=== PATIENT | male | born 1980 | race American Indian/Alaskan Native ===

== ENCOUNTER 2017-05-15 18:30 | Emergency (ER) | payer MEDICARE ==
[2017-05-15 19:32] LABS: Hematocrit 41.7 % (35.5-45.6); Hemoglobin 14.2 gm/dl (11.8-15.2); Mean Corpuscular HGB Conc 34 % (32-34); Mean Corpuscular Hemoglobin 29 pg (28-32); Mean Corpuscular Volume 84 fl (84-94); Platelet Count 253 K/mm3 (140-440); Red Blood Count 4.98 M/mm3 (3.65-5.03); Red Cell Distribution Width 13.1 % (13.2-15.2); White Blood Count 8.1 K/mm3 (4.5-11.0)
[2017-05-15 20:18] LABS: BUN/Creatinine Ratio 11.33; Calcium 9.4 mg/dL (8.4-10.2); Chloride 95.4 mmol/L (98-107); Potassium 4.4 mmol/L (3.6-5.0)
[2017-05-16] MEDS ORDERED: BOOSTRIX IM ONE (01:11)
[2017-05-16] MEDS ORDERED: MOTRIN PO ONE (01:11)
--- NOTE | 2017-05-16 01:13 | Emergency Department Report ---
- General Chief complaint: Skin/Abscess/Foreign Body Stated complaint: POSS INSECT BITE Time Seen by Provider: 05/16/17 01:03 Source: patient Mode of arrival: Ambulatory Limitations: No Limitations - History of Present Illness Initial comments: This is a 29-year-old male nontoxic, well nourished in appearance, no acute signs of distress the present ED complaining of open wound to right breast region. Patient stated he believes he was bitten by something about on the origin. Patient denies any fever, chills, chest pain, shortness of breath, stiff neck, headache, nausea, vomiting, numbness or tingling. Patient stated the wound has been open and draining for the past week. Patient denies following up with a primary care doctor regarding this matter. Denies any drug allergies. Past medical history of diabetes, hypertension, and CVA. MD complaint: other (open wound) -: Gradual, week(s) (1) Tetanus Up to Date: unsure Location: chest (right) Severity: mild Severity scale (0 -10): 9 Quality: aching Consistency: constant Improves with: none Worsens with: none Context: none Associated symptoms: denies other symptoms Treatments Prior to Arrival: none - Related Data Previous Rx's Medication Instructions Recorded Last Taken Type Clindamycin [Clindamycin CAP] 450 mg PO Q8HR 7 Days 05/16/17 Unknown Rx Sulfamethoxazole/Trimethoprim 1 each PO BID 7 Days 05/16/17 Unknown Rx [Bactrim DS TAB] Allergies Allergy/AdvReac Type Severity Reaction Status Date / Time No Known Allergies Allergy Unverified 05/15/17 18:46 Abscess Boil HPI - HPI Chief Complaint: Skin/Abscess/Foreign Body Stated Complaint: POSS INSECT BITE Time Seen by Provider: 05/16/17 01:03 Home Medications: Previous Rx's Medication Instructions Recorded Last Taken Type Clindamycin [Clindamycin CAP] 450 mg PO Q8HR 7 Days 05/16/17 Unknown Rx Sulfamethoxazole/Trimethoprim 1 each PO BID 7 Days 05/16/17 Unknown Rx [Bactrim DS TAB] Allergies/Adverse Reactions: Allergies Allergy/AdvReac Type Severity Reaction Status Date / Time No Known Allergies Allergy Unverified 05/15/17 18:46 ED Review of Systems ROS: Stated complaint: POSS INSECT BITE Other details as noted in HPI Constitutional: denies: chills, fever Eyes: denies: eye pain, eye discharge, vision change ENT: denies: ear pain, throat pain Respiratory: denies: cough, shortness of breath, wheezing Cardiovascular: denies: chest pain, palpitations Endocrine: no symptoms reported Gastrointestinal: denies: abdominal pain, nausea, diarrhea Genitourinary: denies: urgency, dysuria Musculoskeletal: denies: back pain, joint swelling, arthralgia Skin: denies: rash, lesions Neurological: denies: headache, weakness, paresthesias Psychiatric: denies: anxiety, depression Hematological/Lymphatic: denies: easy bleeding, easy bruising ED Past Medical Hx - Past Medical History Hx Hypertension: Yes Hx CVA: Yes Hx Diabetes: Yes - Surgical History Hx Appendectomy: Yes - Social History Smoking Status: Never Smoker Substance Use Type: None - Medications Home Medications: Home Medications Medication Instructions Recorded Confirmed Last Taken Type Clindamycin [Clindamycin CAP] 450 mg PO Q8HR 7 Days 05/16/17 Unknown Rx Sulfamethoxazole/Trimethoprim 1 each PO BID 7 Days 05/16/17 Unknown Rx [Bactrim DS TAB] ED Physical Exam - General Limitations: No Limitations General appearance: alert, in no apparent distress - Head Head exam: Present: atraumatic, normocephalic, normal inspection - Eye Eye exam: Present: normal appearance, PERRL, EOMI. Absent: scleral icterus, conjunctival injection, nystagmus, periorbital swelling, periorbital tenderness Pupils: Present: normal accommodation - ENT ENT exam: Present: normal exam, normal orophraynx, mucous membranes moist, TM's normal bilaterally, normal external ear exam - Neck Neck exam: Present: normal inspection, full ROM. Absent: tenderness, meningismus, lymphadenopathy, thyromegaly - Respiratory Respiratory exam: Present: normal lung sounds bilaterally. Absent: respiratory distress, wheezes, rales, rhonchi, stridor, chest wall tenderness, accessory muscle use, decreased breath sounds, prolonged expiratory - Cardiovascular Cardiovascular Exam: Present: regular rate, normal rhythm, normal heart sounds. Absent: bradycardia, tachycardia, irregular rhythm, systolic murmur, diastolic murmur, rubs, gallop - GI/Abdominal GI/Abdominal exam: Present: soft, normal bowel sounds. Absent: distended, tenderness, guarding, rebound, rigid, diminished bowel sounds - Rectal Rectal exam: Present: deferred - Extremities Exam Extremities exam: Present: normal inspection, full ROM, normal capillary refill. Absent: tenderness, pedal edema, joint swelling, calf tenderness - Back Exam Back exam: Present: normal inspection, full ROM. Absent: tenderness, CVA tenderness (R), CVA tenderness (L), muscle spasm, paraspinal tenderness, vertebral tenderness, rash noted - Neurological Exam Neurological exam: Present: alert, oriented X3, CN II-XII intact, normal gait, reflexes normal - Psychiatric Psychiatric exam: Present: normal affect, normal mood - Skin Skin exam: Present: warm, dry, intact, normal color, other (1 cm x 1 cm circular open wound with pus and drainage noted to the right chest region. Warm to touch. No induration or swelling noted. No fluctuance. No abscess formation.). Absent: rash ED Course Vital Signs 05/15/17 18:41 Temperature 99.3 F Pulse Rate 86 Respiratory 16 Rate Blood Pressure 117/79 O2 Sat by Pulse 99 Oximetry - Reevaluation(s) Reevaluation #1: 05/16/17 01:13 Patient speaks full sentences with no signs of distress. ED Medical Decision Making - Lab Data Result diagrams: 05/15/17 19:18 05/15/17 19:18 - Medical Decision Making 37-year-old male that presents with cellulitis and open wound with purulent drainage. Patient was examined by myself. There is a obvious signs of abscess formation. There is erythema and is warm to touch consistent with cellulitis. Patient will be treated with Bactrim and clindamycin at discharge. A permanent marker has been used and erythema has been outlined. Patient was notified to follow up with a primary care doctor in 3-5 days or if redness passing the permanent marked area or swelling, pus, drainage is getting worse return to emergency room as soon as possible. Area has been cleaned with soap and water and a sterile 4 x 4 has been placed with tape. Patient was instructed to keep the area clean and dry. CBC, BMP has been obtained. Wound cultures has been obtained and are waiting for results. At time time of discharge, the patient does not seem toxic or ill in appearance. No acute signs of distress noted. Patient agrees to discharge treatment plan of care. No further questions noted by the patient. Critical care attestation.: If time is entered above; I have spent that time in minutes in the direct care of this critically ill patient, excluding procedure time. ED Disposition Clinical Impression: Open wound Cellulitis Qualifiers: Site of cellulitis: unspecified site Qualified Code(s): L03.90 - Cellulitis, unspecified Disposition: TO HOME OR SELFCARE Is pt being admited?: No Does the pt Need Aspirin: No Condition: Stable Instructions: Acute Wound Care (ED), Cellulitis (ED), Sulfamethoxazole/ Trimethoprim (By mouth), Clindamycin (By mouth) Additional Instructions: follow up with a primary care doctor in 3-5 days or if redness passing the permanent marked area or swelling, pus, drainage is getting worse return to emergency room as soon as possible. Take full course of antibiotics that was prescribed. Keep area dry and clean. Wash area with soap and water. Prescriptions: Clindamycin [Clindamycin CAP] 450 mg PO Q8HR 7 Days Sulfamethoxazole/Trimethoprim [Bactrim DS TAB] 1 each PO BID 7 Days Referrals: SILVINA LOCKETT MD [Primary Care Provider] - 3-5 Days ECHO ROJAS MD [Staff Physician] - 3-5 Days [facility] [Outside] - 3-5 Days [facility] [Outside] - 3-5 Days Forms: Work/School Release Form(ED)
[2017-05-16 02:00] VITALS: BP 122/83
== END 2017-05-16 02:21 | disposition home or self-care (01) ==
LOC: ED 18:30
DX: S21.001A Unspecified open wound of right breast, initial encounter (principal); N61.0 Mastitis without abscess; I10 Essential (primary) hypertension; E11.9 Type 2 diabetes mellitus without complications; Z86.73 Personal history of transient ischemic attack (TIA), and cerebral infarction without residual deficits; X58.XXXA Exposure to other specified factors, initial encounter; Y93.89 Activity, other specified; Y92.89 Other specified places as the place of occurrence of the external cause; Y99.8 Other external cause status
CPT/HCPCS: 36415; 80048; 85027; 87040; 90471; 90715; 99283